=== PATIENT | male | born 1955 | race Caucasian/White ===

== ENCOUNTER 2024-10-09 01:02 | Day surgery (SDC) | payer MEDICARE, SELFPAY ==
[2024-09-29 11:09] VITALS: BMI 37.6
--- OUTSIDE RECORDS SUMMARY | 2024-10-09 01:13 | XMS_ITS | Encounter Summary ---
Author Organization [facility] Address [facility] [place] [address] Care Team Providers Care Newspaper Inserter Name Role Phone Kori Becerril NP Unavailable [phone] Pedro Real MD Primary Care Provider [phone] Encounter Details Date Type Department Care Team (Late Contact Info) Description 06/25/2024 Prep for Procedure [facility] [address] [place] [id number] Aldair Santos MD [address] [facility] [address] [place], [place] [id number] Social History Tobacco Use Types Packs/Day Years Used Date Smoking Tobacco: Never Smokeless Tobacco: Never Alcohol Use Standard Drinks/Week Comments Not Currently 0 (1 standard drink = 0.6 oz pur e alcohol) Sex and Gender Information Value Date Recorded Sex Assigned at Not on file 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 [address] documented as of this encounter Visit Diagnoses Not on filedocumented in this encounter Care Teams Newspaper Inserter Relationship Specialty Start Date End Date Pedro Real MD [address] [place], [place] [id number] PCP - General FAMILY PRACTICE 06/02/24 Kori Becerril NP [address] [place], [place] [id number] Nurse Practitioner NURSE PRACTITIONER ADULT HEALTH 05/26/24 documented as of this encounter
--- OUTSIDE RECORDS SUMMARY | 2024-10-09 01:13 | XMS_ITS | Clinical Summary ---
Author Organization [facility] Address [address] [place] [address] Care Team Providers Care Fifth Grade Teacher Name Role Phone Pedro Real MD Primary Care Provider Nikko Ramirez DO Unavailable [phone] Bogdan Jacobsen MD Unavailable Shemar Whitley MD Unavailable [phone] Checo Sargent MD Unavailable Roselia Clarke NP Unavailable Allergies No known active allergies Medications amLODIPine (NORVASC) 5 mg tabletIndicatio ns:hypertension Take 1 tablet (5 mg total) by mouth every morning Active rosuvastatin (CRESTOR) 20 mg tabletIndicatio ns:hyperlipidem ia Take 1 tablet (20 mg total) by mouth every morning Active multivitamin tabletIndicatio ns:Vitamin Deficiency Prevention Take 1 tablet by mouth nightly Active ascorbic acid (VITAMIN C ORAL)Indication s:supplement Take 1 tablet by mouth every morning Active cholecalciferol , vitamin D3, (VITAMIN D3 ORAL)Indication s:supplement Take 1 tablet by mouth every morning Active acetaminophen (TYLENOL) 500 mg tablet Take 1-2 tablets (500-1,000 mg total) by mouth as needed for pain Active mag/aluminum/so d bicarb/alginc (GAVISCON ORAL) Take by mouth as needed Active prochlorperazin e (Compazine) 10 mg tabletIndicatio ns:Malignant melanoma of back (HCC) Take 1 tablet (10 mg total) by mouth every 6 (six) hours as needed for nausea or vomiting 30 tablet 3 3 Active LYCOPENE ORAL Take 1 tablet by mouth daily Active triamcinolone (KENALOG) 0.1 % cream Apply topically 2 (two) times a day Apply to rash covered area two times daily as needed for rash/itching 80 g 2 4 Active aspirin 81 mg chewable tablet CHEW 1 TABLET BY MOUTH EVERY DAY 5 Active mecobalamin, vitamin B12, (B12 Active) 1,000 mcg tablet,chewable 5 Active metoprolol XL (TOPROL-XL) 25 mg extended release tablet Take 1 tablet (25 mg total) by mouth daily 5 07/01/19 26 Active ticagrelor (BRILINTA) 90 mg tablet Take 1 tablet (90 mg total) by mouth 2 (two) times a day 5 07/01/19 26 Active Active Problems Problem Noted Date Diagnosed Date Back wound, right, initial encounter 01/23/2023 Malignant melanoma of back 12/10/2022 Malignant melanoma of upper back 12/06/2022 Malignant neoplasm of testis 06/19/2016 History of renal calculi 08/16/2015 Arthritis 09/07/2014 Obesity 06/16/2013 Encounters Date Type Department Care Team Description 07/13/2024 2:20 PM CDT Office Visit [facility] [address] [place] [address] [address] [place] [address] Shemar Whitley MD Malignant melanoma of back (HCC) (Primary Dx) 07/13/2024 1:00 PM CDT Lab [facility] Lab [address] [place] [address] 6 [place] [address] Malignant melanoma of back (HCC) 07/13/2024 12:45 PM CDT Clinical Support [facility] - Lab Collection [facility] Floor 6 [place] [address] Malignant melanoma of back (HCC) 07/13/2024 10:24 AM CDT - 07/13/2024 11:59 PM CDT Hospital Encounter [facility] - PET [address] [facility] Floor 8 [place] [address] Discharge Disposition: Discharge to home or self care 07/13/2024 10:24 AM CDT - 07/13/2024 11:59 PM CDT Hospital Encounter [facility] - PET [address] [facility] Floor 8 [place] [address] Malignant melanoma of back (HCC) Discharge Disposition: Discharge to home or self care 07/13/2024 Orders Only [facility] Scanning, Provider from Last 3 Months Immunizations Immunization Administration Dates Next Due Tdap 04/10/2024 ZOSTER Recombinant 01/21/2021 Surgical History Surgery Date Site/Laterality Comments TESTICLE SURGERY 03/04/2012 - 03/03/2013 and undescended testicle surgery as a child REPLACEMENT TOTAL KNEE BILATERAL 03/04/2021 - 03/03/2022 KIDNEY STONE SURGERY MELANOMA RESECTION 12/18/2022 right upper back Medical History Medical History Date Comments Malignant melanoma of upper back (HCC) Melanoma (HCC) Hypertension Chronic kidney disease kidney [facility]/ Nephritis as a child Family History * Patient is adopted Medical History Relation Name Comments Anesthesia problems Neg Hx Social History Tobacco Use Types Packs/Day Years Used Date Smoking Tobacco: Never Smokeless Tobacco: Never Tobacco Cessation:Counseling Given: Not Answered AUDIT-C Answer Date Recorded Q1: How often do you have a drink containing alc ohol? Monthly or less 02/01/2023 Q2: How many drinks containi ng alcohol do you have on a typical day when you are drinking? 1 or 2 02/01/2023 Q3: How often do you have si x or more drinks on one occasion? Never 02/01/2023 Personal Safety Answer Date Recorded Have you ever been in or are you currently in a harmful physical or emotional relationship or is someone making you feel afraid or unsafe? 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 Gender Identity Not on file Sexual Orientation Not on file Obstetrics History Last Filed Vital Signs Vital Sign Reading Time Taken Comments Blood Pressure 142/78 07/13/2024 1:58 PM CDT Pulse 66 07/13/2024 1:58 PM CDT Temperature 36.4 C (97.5 F) 07/13/2024 1:58 PM CDT Respiratory Rate 18 07/13/2024 1:58 PM CDT Oxygen Saturation 99% 07/13/2024 1:58 PM CDT Inhaled Oxygen Concentration - - Weight 120.2 kg (265 lb) 07/13/2024 1:58 PM CDT Height 179 cm (5' 10.47) 07/13/2024 1:58 PM CDT Body Mass Index 37.52 07/13/2024 1:58 PM CDT Plan of Treatment Health Maintenance Due Date Last Done Comments Colon Cancer Screening-Colonoscopy 1955 Depression Screening 1955 Hepatitis C Screening 1955 Prostate Cancer Screening-PSA 1955 Hepatitis B Screening 02/28/1974 Pneumococcal vaccine 65+ (1 of 1 - PCV) 02/28/2006 Well Visit 65+ 02/28/2021 Zoster Vaccine (2 of 2) 03/18/2021 01/21/2021 Covid-19 Vaccine (4 - 2023-2 5 season) 2023 02/16/2021, 06/02/2020, 05/04/2020 Fall Risk Assessment 02/02/2024 02/01/2023 Influenza Vaccine (#1) 2024 DTaP/Tdap/Td Vaccine (2 - Td or Tdap) 04/10/2034 04/10/2024 Abdominal Aortic Aneurysm (A AA) Screen Completed 05/25/2024, 02/14/2016, 01/03/2015, Additional history exists Medical Devices Implanted Type Area Distribution Analyst Device Identifier Shelf Expiration Date Model / Serial / Lot Francisco Knees Knee Procedures Procedure Name Priority Date/Time Associated Diagnosis Comments EGFR Routine 07/13/2024 12:54 PM CDT Malignant melanoma of back (HCC) DIFFERENTIAL AUTO Routine 07/13/2024 12: 54 PM CDT Malignant melanoma of back (HCC) CBC WITH AUTO DIFFERENTIAL Routine 07/13/2024 12:54 PM CDT Malignant melanoma of back (HCC) COMPREHENSIVE METABOLIC PANEL Routine 07/13/2024 12:54 PM CDT Malignant melanoma of back (HCC) LACTATE DEHYDROGENASE Routine 07/13/2024 12:54 PM CDT Malignant melanoma of back (HCC) THYROID FUNCTION CASCADE Routine 07/13/2024 12:54 PM CDT Malignant melanoma of back (HCC) SIGNATERA ONLY Routine 07/13/2024 12:44 PM CDT Malignant melanoma of back (HCC) PET/CT FDG SKULL TO THIGH Schedule Routine, Read Routine (OP Routine) 07/13/2024 12:36 PM CDT Malignant melanoma of back (HCC) SCAN - PATHOLOGY 07/13/2024 CT ABDOMEN PELVIS W CONTRAST Routine 02/14/2016 12:37 PM METAL WELDER from Last 3 Months or Most Recently Relevant to Health Maintenance Results * (ABNORMAL) eGFR (07/13/2024 12:54 PM CDT) eGFR 56(L) >=60 mL/min/1. 73 m2 Comment: Interpretive Data Reference Interval Normal >/= 90 mL/min/1.73m2 Mildly decreased* 60 - 89 mL/min/1.73m2 Mildly to moderately decreased 45 - 59 mL/min/1.73m2 Moderately to severely decreased 30 - 44 mL/min/1.73m2 Severely decreased 15 - 29 mL/min/1.73m2 Kidney Failure < 15 mL/min/1.73m2 *Relative to young adult level Estimated glomerular filtration rate is determined by the 2020 CKD-EPI equation recommended by the National Kidney Foundation (A Unifying Approach to GFR Estimation: Recommendations of the NKF-ASK Task Force on Reassessing the Inclusion of Race in Diagnosing Kidney Disease, JASN 202). The CKD-EPI equation should not be used for patients with unstable renal function and has not been validated in children and those over 70. Current interpretive data was last reviewed 2021. Blood 07/13/2024 12:5 4 PM CDT 07/13/2024 1:34 PM CDT us Shemar Whitley MD LAB BLOOD ORDERABLES Final Res ult [facility] Department [place] [address] * Differential, auto (07/13/2024 12:54 PM CDT) Neutrophil abs 5.78 1.50 - 6.50 K/cumm Comment:Testing performed by : [facility], [address] [place] [phone] Lymphocyte abs 1.46 0.80 - 3.30 K/cumm ELI HIDALGO Comment:Testing performed by : [facility], [address] [place], [place] [phone] Monocyte abs 0.69 0.20 - 0.80 K/cumm ELI HIDALGO Comment:Testing performed by : [facility], [address] [place], [place] [phone] Eosinophil abs 0.15 0.00 - 0.50 K/cumm ELI HIDALGO Comment:Testing performed by : [facility], [address] [place] [phone] Basophil abs 0.02 0.00 - 0.10 K/cumm CERSARAH HIDALGO Comment:Testing performed by : [facility], [address] [place] [phone] Neutrophil pct 71.3 % CERNER BJ Comment: Interpretive Data Percent cell count reference ranges are not reported, since discordance with absolute values may lead to misinterpretation of CBC data. Current Interpretive Data was last revised on 2017. Testing performed by: [facility], [address] [place] [phone] Lymphocyte pct 18.1 % CERNER BJ Comment: Interpretive Data Percent cell count reference ranges are not reported, since discordance with absolute values may lead to misinterpretation of CBC data. Current Interpretive Data was last revised on 2017. Testing performed by: [facility], [address] [place] [phone] Monocyte pct 8.5 % CERNER BJ Comment: Interpretive Data Percent cell count reference ranges are not reported, since discordance with absolute values may lead to misinterpretation of CBC data. Current Interpretive Data was last revised on 2017. Testing performed by: [facility], [address] [place] [phone] Eosinophil pct 1.8 % ELI HIDALGO Comment: Interpretive Data Percent cell count reference ranges are not reported, since discordance with absolute values may lead to misinterpretation of CBC data. Current Interpretive Data was last revised on 2017. Testing performed by: [facility], [address] [place] [phone] Basophil pct 0.3 % ELI HIDALGO Comment: Interpretive Data Percent cell count reference ranges are not reported, since discordance with absolute values may lead to misinterpretation of CBC data. Current Interpretive Data was last revised on 2017. Testing performed by: [facility], [address] [place] [phone] Blood 07/13/2024 12:5 4 PM CDT 07/13/2024 1:29 PM CDT us Shemar Whitley MD LAB BLOOD ORDERABLES Final Res ult Performing Organization Address City/[facility]/ZIP Co de Phone Number [facility] Department [place] [address] * Thyroid Function [place] (07/13/2024 12:54 PM CDT) TSH 1.34 0.30 - 4.20 mcIUnit/mL Blood 07/13/2024 12:5 4 PM CDT 07/13/2024 1:34 PM CDT us Shemar Whitley MD LAB BLOOD ORDERABLES Final Res ult Performing Organization Address City/[facility]/ZIP Co de Phone Number [facility] Department [place] [address] * CBC with auto differential (07/13/2024 12:54 PM CDT) WBC 8.11 3.80 - 9.90 K/cumm Comment:Testing performed by : [facility], [address] [place], [place] [phone] Hgb 16.1 13.0 - 17.5 g/dL CERNER BJ Comment:Testing performed by : [facility], [address] [place], [place] [phone] Hct 46.9 38.9 - 50.3 % CERNER BJ Comment:Testing performed by : [facility], [address] [place], [place] [phone] Plt 190 150 - 400 K/cumm CERSARAH BJ Comment:Testing performed by : [facility], [address] [place], [place] [phone] MPV 9.4 6.8 - 10.4 fL CERNER BJ Comment:Testing performed by : [facility], [address] [place], [place] [phone] RBC 5.46 4.30 - 5.80 M/cumm CERNER BJ Comment:Testing performed by : [facility], [address] [place], [place] [phone] MCV 86.0 81.3 - 96.4 fL CERNER BJ Comment:Testing performed by : [facility], [address] [place], [place] [phone] MCH 29.5 27.1 - 33.3 pg CERNER BJ Comment:Testing performed by : [facility], [address] [place] [address] MCHC 34.3 32.3 - 35.7 g/dL CERNER BJ Comment:Testing performed by : [facility], [address] [place] [address] RDW CV 13.8 11.1 - 14.9 % CERNER BJ Comment:Testing performed by : [facility], [address] [place] [address] NRBC abs 0.00 0.00 - 0.01 K/cumm CERNER BJ Comment:Testing performed by : [facility], [facility] [place] [address] Blood 07/13/2024 12:5 4 PM CDT 07/13/2024 1:29 PM CDT Shemar Whitley MD LAB BLOOD ORDERABLES Final Res ult Performing Organization Address City/[facility]/ZIP Co de Phone Number [facility] Department [place] [address] * Lactate dehydrogenase (LD) (07/13/2024 12:54 PM CDT) Lactate dehydrogenase (LDH) 142 100 - 250 Units/L Blood 07/13/2024 12:5 4 PM CDT 07/13/2024 1:34 PM CDT Shemar Whitley MD LAB BLOOD ORDERABLES Final Res ult Performing Organization Address [facility] Co de Phone Number [facility] Department [place] [address] * (ABNORMAL) Comprehensive metabolic panel (07/13/2024 12:54 PM CDT) Pathologist [facility] Sodium 138 135 - 145 mmol/L Potassium, pl 4.1 3.3 - 4.9 mmol/L [facility] Chloride 106 97 - 110 mmol/L [facility] CO2 22 22 - 32 mmol/L [facility] Anion gap 10 2 - 15 mmol/L [facility] BUN 17 6 - 25 mg/dL [facility] Creatinine 1.37(H) 0.80 - 1.30 mg/dL [facility] Glucose 127 70 - 199 mg/dL [facility] Comment: Interpretive Data Fasting glucose >/= 126 mg/dl is diagnostic for diabetes. Fasting is defined as no caloric intake for at least 8 hours. Fasting glucose between 100 mg/dl to 125 mg/dl is diagnostic of prediabetes. In a patient with classic symptoms of hyperglycemia or hyperglycemic crisis, a random glucose >/= 200 mg/dl is diagnostic for diabetes. In the absence of unequivocal hyperglycemia, results should be confirmed by repeat testing. The classification and Diagnosis of Diabetes Diabetes Care 2021; 46: S19-S40. Current interpretive data was last revised 2022. Calcium 9.2 8.5 - 10.3 mg/dL CERNER BJ Bilirubin, total 0.7 0.1 - 1.2 mg/dL CERNER BJ Protein, pl 7.5 6.5 - 8.5 g/dL CERNER BJ Albumin 4.2 3.5 - 5.0 g/dL CERNER BJ Alk phos 73 40 - 130 Units/L [facility] ALT 16 7 - 55 Units/L CERNER BJ AST 20 10 - 50 Units/L CERNER BJ Blood 07/13/2024 12:5 4 PM CDT 07/13/2024 1:34 PM CDT us Shemar Whitley MD LAB BLOOD ORDERABLES Final Res ult [facility] Department [place] [address] * SIGNATERA ONLY (07/13/2024 12:44 PM CDT) SIGNATERA TEST RESULT NEGATIVE 10:23 AM CDT [facility] SIGNATERA MTM READOUT 0 MTM/ml 10:23 AM CDT [facility] Comment: Limitations Signatera is a personalized, tumor-informed test for the longitudinal detection of circulating tumor DNA (ctDNA). Interval testing is recommended for all patients. Studies have demonstrated that when ctDNA is detected (Signatera Positive) following surgery or definitive treatment, the risk for disease relapse is high without further treatment. Conversely, when ctDNA is not detected, the patient may be considered at lower risk for relapse. For those with multiple timepoints, upward trending ctDNA levels are suggestive of increasing tumor burden (1,2). For a single time point in isolation, the absolute MTM/mL value has no known clinical significance and should not be compared across patients. Test results should be interpreted in context of other clinicopathological features. ctDNA detection sensitivity may be limited due to blood collection within two weeks of surgery and while the patient is on therapy. Signatera is a quantitative test and reports in units of mean tumor molecules per ml (MTM/mL), which is comprised of three measured components (plasma volume, cell free DNA (cfDNA) concentration, and Variant Allele Frequency (VAF)). The MTM/mL number will be qualified if any measured component falls outside the analytical measurement range for that component. The analytical sensitivity is 95% at the limit of detection (0.3 MTM/mL). Results obtained are specific to the assessed time point. A negative test result does not definitively indicate the absence of cancer. This test is not designed to detect or report germline variation, nor does it infer hereditary cancer risk for the patient. Each Signatera assay is designed to a single tumor for a given patient. At this time, multiple personalized Signatera assays cannot be developed for the same patient. This test is designed to detect ctDNA from the assayed tumor only; new primary tumors will not be detected. There is a low risk that a new primary may share a variant that could interfere with the Signatera test. Testing cannot be performed in patients who are , have a history of bone marrow transplant, or history of blood transfusion within three months. This test is expected to have limited sensitivity in cancer types such as GIST, renal cell carcinomas, primary brain tumors, and lymphoma due to limited ctDNA shed. 1 Cirilo JERONIMO, Karlos CHENC, Aria TELLEZ, et al. Personalized circulating tumor DNA analysis as a predictive biomarker in solid tumor patients treated with pembrolizumab. Nature Cancer. 2020;1(9):873-881. 2 Ainsley HENRIQUEZ, Randall Abad, et al., Circulating Tumor DNA in Stage III Colorectal Cancer, beyond Minimal Residual Disease Detection, toward Assessment of Adjuvant Therapy Efficacy and Clinical Behavior of Recurrences. Clin Cancer Res. 202; 28(3):507-517. Methodology FFPE samples are reviewed by a pathologist to assess tumor content and percent tumor nuclei. Tumor DNA is extracted using [employer] Mag-Bind FFPE DNA/RNA kit. Whole genomic DNA is isolated from peripheral blood using QIAamp DNA Blood MiniKit to provide DNA for germline sequencing. Circulating tumor DNA (ctDNA) is extracted from plasma derived from whole blood samples collected in cell-free DNA blood tubes (bitFlyer) using the QIAsymphony automated or manual extraction method (Qiagen). Whole-exome sequencing is performed on tumor and peripheral blood DNA using the One[employer] whole-exome sequencing assay. Using a proprietary algorithm, putative, clonal variants present in the tumor but absent in the germline DNA are identified to design the customized multiplex PCR assay. The customized PCR assays are run to detect presence or absence of these variants within circulating plasma. A patient's plasma sample is considered ctDNA positive when at least two individual-specific tumor variants are detected. When fewer than two individual-specific tumor variants are observed, a negative result is issued. Pathology services and whole exome sequencing is performed at [facility]. (CLIA ID# [id number]), [facility] [address] [place] [address]. Disclaimer The extraction, library preparation, and sequencing for this test were performed by [facility] [address] [place] [address] (CLIA ID [id number]). The data analysis and reporting for this test were performed by [facility]., [address], [place] [address] (CLIA ID [id number]). This test was developed and its performance characteristics determined by [facility]. The test has not been cleared or approved by the U.S. Food and Drug Administration (FDA). CAP accredited, ISO 57753 certified, and CLIA certified. Pathology services and whole exome sequencing for this test were performed by [facility] [address], [place] [address] (CLIA ID [id number]). 2020 [employer]. All Rights Reserved. Blood specimen (specimen) Venous blood specimen / Unknown 07/13/2024 12:44 PM CDT 07/20/2024 10:23 AM CDT Shemar Whitley MD LAB GENETIC TESTING Final Resu lt [facility] [address] [place] [address], [facility] * PET/CT FDG Skull to Thigh (07/13/2024 12:36 PM CDT) Anatomical Region Laterality Modality N/A Positron Emissio n Tomography (PET) 07/13/2024 3:33 PM CDT Impressions 07/13/2024 5:36 PM CDT 1. No evidence of residual or recurrent disease. Dictated by: Kira Castellanos MD The radiology attending physician has personally reviewed this study, and had reviewed and/or edited this written report and agrees with it. Electronically signed by: DO Florence Grover 07/13/2024 5:36 PM CDT EXAMINATION: TUMOR FDG-PET/CT IMAGING DATE OF STUDY: 07/13/2024 SCANNER: [employer] (SQ1). This is a high-resolution scanner, which can result in higher SUVs (and even detection of previously unrecognized small lesions) compared to older scanners. RADIOPHARMACEUTICAL: 9.24 mCi F-18 Fluorodeoxyglucose (FDG) i.v. 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 The study is requested for treatment monitoring during therapy. Subsequent treatment strategy. TECHNIQUE: The patient's fasting blood glucose level, measured by glucometer before injection of FDG, was 136 mg/dL. After intravenous administration of FDG, noncontrast CT images were obtained for attenuation correction and for fusion with emission PET images to allow for anatomical localization of PET findings. Emission PET images were then obtained. The study was interpreted on the [employer] workstation. The mean liver SUV (reported for design quality engineer purposes) is 2.7. The total scanned area was skull vertex to proximal thighs. Images of the body were obtained starting 71 minutes after injection of tracer. All reported SUVs are maximum SUVs, unless otherwise specified. COMPARISON: Multiple prior PET CTs including most recent dated 03/16/2024 DESCRIPTORS OF LESION FDG AVIDITY: Minimal: <= blood pool Mild: > blood pool and <= liver Moderate: > liver and <= 2x SUVmax liver Moderate to marked: >2x SUVmax liver and <= 3x SUVmax liver Marked: > 3x SUVmax liver FINDINGS: There is further resolution of inflammatory activity in postsurgical changes in the right upper back. There is moderate FDG uptake surrounding bilateral shoulder joints, and from osteoarthritis. There is moderate FDG uptake involving the esophagus, likely inflammatory. There is interval development of subpleural nodule measuring approximately 4 mm in the right upper lobe (image 137). Additional CT findings: Dental restorations. Postsurgical changes in the right supraclavicular region. . Left thyroid nodule. Aortocoronary calcifications. Atrophic left kidney. Diverticulosis. Hepatic steatosis. Postsurgical changes of left radical orchiectomy.. Degenerative changes in the spine. Bilateral knee replacements. Procedure Note Hiram Boone, DO - 07/13/2024 EXAMINATION: TUMOR FDG-PET/CT IMAGING DATE OF STUDY: 07/13/2024 SCANNER: [facility] [employer] (SQ1). This is a high-resolution scanner, which can result in higher SUVs (and even detection of previously unrecognized small lesions) compared to older scanners. RADIOPHARMACEUTICAL: 9.24 mCi F-18 Fluorodeoxyglucose (FDG) i.v. 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 The study is requested for treatment monitoring during therapy. Subsequent treatment strategy. TECHNIQUE: The patient's fasting blood glucose level, measured by glucometer before injection of FDG, was 136 mg/dL. After intravenous administration of FDG, noncontrast CT images were obtained for attenuation correction and for fusion with emission PET images to allow for anatomical localization of PET findings. Emission PET images were then obtained. The study was interpreted on the [employer] workstation. The mean liver SUV (reported for design quality engineer purposes) is 2.7. The total scanned area was skull vertex to proximal thighs. Images of the body were obtained starting 71 minutes after injection of tracer. All reported SUVs are maximum SUVs, unless otherwise specified. COMPARISON: Multiple prior PET CTs including most recent dated 03/16/2024 DESCRIPTORS OF LESION FDG AVIDITY: Minimal: <= blood pool Mild: > blood pool and <= liver Moderate: > liver and <= 2x SUVmax liver Moderate to marked: >2x SUVmax liver and <= 3x SUVmax liver Marked: > 3x SUVmax liver FINDINGS: There is further resolution of inflammatory activity in postsurgical changes in the right upper back. There is moderate FDG uptake surrounding bilateral shoulder joints, and from osteoarthritis. There is moderate FDG uptake involving the esophagus, likely inflammatory. There is interval development of subpleural nodule measuring approximately 4 mm in the right upper lobe (image 137). Additional CT findings: Dental restorations. Postsurgical changes in the right supraclavicular region. . Left thyroid nodule. Aortocoronary calcifications. Atrophic left kidney. Diverticulosis. Hepatic steatosis. Postsurgical changes of left radical orchiectomy.. Degenerative changes in the spine. Bilateral knee replacements. IMPRESSION: 1. No evidence of residual or recurrent disease. Dictated by: Kira Castellanos MD The radiology attending physician has personally reviewed this study, and had reviewed and/or edited this written report and agrees with it. Electronically signed by: Hiram Boone DO Shemar Whitley MD IMG PET PROCEDURES Final Resul t * SCAN - PATHOLOGY (07/13/2024) us Provider Scanning Final Result * CT Abdomen Pelvis W Contrast (02/14/2016 12:37 PM METAL WELDER) Anatomical Region Laterality Modality Body N/A Computed Tomogra phy 02/14/2016 12:3 7 PM METAL WELDER Narrative 02/14/2016 12:50 PM METAL WELDER TOMMIE WATSON M.D. FINAL REPORT ACC# Date Time Exam [id number] Feb 14, 2016 12:37:[id number] Chest with contrast [id number] Feb 14, 2016 12:37:[id number] Abd & Pelvis with cont EXAMINATION: CT chest, abdomen, and pelvis with contrast HISTORY: Testicular cancer TECHNIQUE: CT of the chest, abdomen, and pelvis was performed after the uneventful intravenous administration of 95 mL Optiray-350 per routine protocol. FINDINGS: Comparison is made to a prior study dated 01/03/2015. 2 mm right lower lobe pulmonary nodule at table position -109 stable. No new pulmonary nodule or mass is identified. There is no pleural effusion, pneumothorax, or consolidation. There is no axillary, supraclavicular, mediastinal, or hilar lymphadenopathy. Heart size is normal with trace pericardial fluid. The thoracic aorta is nonaneurysmal. No liver lesion or biliary ductal dilatation is identified. The gallbladder is nondistended but contains some heterogeneous layering material probably representing small noncalcified stones. No focal lesion is identified in the adrenal glands or pancreas. The spleen is normal in size. Again seen is atrophy an urothelial thickening within the left kidney. A 2 mm nonobstructing stone is seen in the left kidney lower pole. Heterogeneous attenuation within the proximal left ureter may represent tiny nonobstructing stones as described previously, but appear less prominent. The right kidney demonstrates no hydronephrosis. There is a 2 mm nonobstructing right kidney upper pole calculus. The abdominal aorta is normal in caliber. No retroperitoneal, mesenteric, pelvic, or inguinal lymphadenopathy is identified. Surgical changes from left orchiectomy are noted. The bladder is decompressed. Prostate gland is normal in size. There is no free intraperitoneal fluid or free gas. No intestinal obstruction or bowel thickening is identified. There are scattered colonic diverticula without associated inflammation. The appendix is normal. Bone windows demonstrate no suspicious lytic or blastic osseous lesion. There is no vertebral compression deformity. IMPRESSION: 1. No metastatic disease identified in the chest, abdomen, or pelvis. Requested By: Dictated By: TOMMIE WATSON M.D. on Feb 14 2016 12:50P This document has been electronically signed by: TOMMIE WATSON M.D. on Feb 14 2016 12:50P [id number] Procedure Note Provider, MD Jason - 07/09/2016 TOMMIE WATSON M.D. FINAL REPORT ACC# Date Time Exam [id number] Feb 14, 2016 12:37:[id number] Chest with contrast [id number] Feb 14, 2016 12:37:[id number] Abd & Pelvis with cont EXAMINATION: CT chest, abdomen, and pelvis with contrast HISTORY: Testicular cancer TECHNIQUE: CT of the chest, abdomen, and pelvis was performed after the uneventful intravenous administration of 95 mL Optiray-350 per routine protocol. FINDINGS: Comparison is made to a prior study dated 01/03/2015. 2 mm right lower lobe pulmonary nodule at table position -109 stable. No new pulmonary nodule or mass is identified. There is no pleural effusion, pneumothorax, or consolidation. There is no axillary, supraclavicular, mediastinal, or hilar lymphadenopathy. Heart size is normal with trace pericardial fluid. The thoracic aorta is nonaneurysmal. No liver lesion or biliary ductal dilatation is identified. The gallbladder is nondistended but contains some heterogeneous layering material probably representing small noncalcified stones. No focal lesion is identified in the adrenal glands or pancreas. The spleen is normal in size. Again seen is atrophy an urothelial thickening within the left kidney. A 2 mm nonobstructing stone is seen in the left kidney lower pole. Heterogeneous attenuation within the proximal left ureter may represent tiny nonobstructing stones as described previously, but appear less prominent. The right kidney demonstrates no hydronephrosis. There is a 2 mm nonobstructing right kidney upper pole calculus. The abdominal aorta is normal in caliber. No retroperitoneal, mesenteric, pelvic, or inguinal lymphadenopathy is identified. Surgical changes from left orchiectomy are noted. The bladder is decompressed. Prostate gland is normal in size. There is no free intraperitoneal fluid or free gas. No intestinal obstruction or bowel thickening is identified. There are scattered colonic diverticula without associated inflammation. The appendix is normal. Bone windows demonstrate no suspicious lytic or blastic osseous lesion. There is no vertebral compression deformity. IMPRESSION: 1. No metastatic disease identified in the chest, abdomen, or pelvis. Requested By: Dictated By: TOMMIE WATSON M.D. on Feb 14 2016 12:50P This document has been electronically signed by: TOMMIE WATSON M.D. on Feb 14 2016 12:50P [id number] Historical Provider MD JASON CT PROCEDURES Final R esult from Last 3 Months or Most Recently Relevant to Health Maintenance Insurance MEDICARE COMMERCIAL GENERIC MEDICARE COMMERCIAL GENERIC Care Teams Fifth Grade Teacher Relationship Specialty Start Date End Date Pedro Real MD PCP - General Family Medicine 12/04/22 Nikko Ramirez DO [address] [place] [address] Referring Physician Surgery 12/04/22 Bogdan Jacobsen MD [address] [place] [address] Surgeon Surgical Oncology 12/05/22 Shemar Whitley MD [address] [facility] [address] [place] [address] Medical Oncologist/Gang Tailer Medical Oncology 12/05/22 Arie, Checo Marks MD [address] [place] [address] Consulting Physician Plastic Surgery 12/07/22 Roselia Clarke GREY ROLL MAN [address] [place], [place] [address] Nurse Practitioner Family Medicine 02/01/23
--- OUTSIDE RECORDS SUMMARY | 2024-10-09 01:13 | XMS_ITS ---
Author Organization [facility] Address [address] [place] [address] Care Team Providers Care Flour Mixer Name Role Phone Pedro Real MD Primary Care Provider Nikko Ramirez DO Unavailable Bogdan Jacobsen MD Unavailable Shemar Whitley MD Unavailable Checo Sargent MD Unavailable Roselia Clarke NP Unavailable [phone] Active Problems Problem Noted Date Diagnosed Date Back wound, right, initial encounter 01/23/2023 Malignant melanoma of back 12/10/2022 Malignant melanoma of upper back 12/06/2022 Malignant neoplasm of testis 06/19/2016 History of renal calculi 08/16/2015 Arthritis 09/07/2014 Obesity 06/16/2013 Current Treatment and Therapy Plans Hydration Therapy Plan* Plan Start Date:02/15/2023 Plan Provider:Shemar Whitley MD Linked Problems Malignant melanoma of back ( HCC) Treatment Medications No medications scheduled. Past Treatment and Therapy Plans Oncology Chemotherapy Treatment Plan Name Start Date Discontinue Date Treatment Medications Discontinue Reason Plan Provider Cycles Pembrolizumab 21 Day Cycles 023 03/16/2024 pembrolizumab (KEYTRUDA)pembr olizumab (KEYTRUDA) IVPB in 100 mL Therapy Complete Shemar Whitley MD 17 of 17 cycles completed
--- OUTSIDE RECORDS SUMMARY | 2024-10-09 01:14 | XMS_ITS | Encounter Summary ---
Author Organization [facility] Address [address] [place] [address] Phone Care Team Providers Care Speech Therapy Director Name Role Phone Pedro Real MD Primary Care Provider Nikko Ramirez DO Unavailable [phone] Bogdan Jacobsen MD Unavailable [phone] Shemar Whitley MD Unavailable [phone] Checo Sargent MD Unavailable [phone] Roselia Clarke NP Unavailable [phone] Encounter Details Date Type Department Care Team (Latest Contact Info) Description 03/16/2024 Orders Only [facility] Scanning, Provider Social History Tobacco Use Types Packs/Day Years Used Date Smoking Tobacco: Never Smokeless Tobacco: Never AUDIT-C Answer Date Recorded Q1: How often [...] on file 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 Gender Identity Not on file Sexual Orientation Not on file documented as of this encounter Plan of Treatment Not on file documented as of this encounter Procedures Procedure Name Priority Date/Time Associated Diagnosis Comments SCAN - PATHOLOGY 03/16/2024 documented in this encounter Results * SCAN - PATHOLOGY (03/16/2024) Provider Scanning Final Result documented in this encounter Visit Diagnoses Not on filedocumented in this encounter Care Teams Speech Therapy Director Relationship Specialty Start Date End Date Pedro Real MD PCP - General Family Medicine 12/04/22 Nikko Ramirez DO [address] [place], [place] [address] Referring Physician Surgery 12/04/22 Bogdan Jacobsen MD [address] [place] [address] Surgeon Surgical Oncology 12/05/22 Shemar Whitley MD [address] [facility] [address] [place] [address] Medical Oncologist/Escalation Engineer Medical Oncology 12/05/22 Arie, Checo Marks MD [address] [facility] [address] [place] [address] Consulting Physician Plastic Surgery 12/07/22 Roselia Clarke NP [address] [place], [place] [address] Nurse Practitioner Family Medicine 02/01/23 documented as of this encounter
--- OUTSIDE RECORDS SUMMARY | 2024-10-09 01:14 | XMS_ITS | Clinical Summary ---
Author Organization [facility] Address [address] [place] [address] Phone Care Team Providers Care Crane Service Technician Name Role Phone Provider, Outside Primary Care Provider Unavaila ble Allergies No known active allergies Medications Rosuvastatin (CRESTOR) 20 mg tablet Take 20 mg by mouth every day Active amLODIPine (NORVASC) 5 mg tablet Take 5 mg by mouth every day Active cholecalciferol (VITAMIN D3) 25 mcg (1,000 unit) capsule Take 1,000 Units by mouth every day Active multivit,calc,m fh-OU-[id number]-lycop 240 mcg-30 mcg- 300 mcg Tab Take 1 tablet by mouth every day Active ascorbic acid, vitamin C, (VITAMIN C) 1,000 mg Tab Take 1,000 mg by mouth daily at bedtime Active Active Problems Problem Noted Date Diagnosed Date Hypertensive intracerebral hemorrhage 08/03/2023 Social History Tobacco Use Types Packs/Day Years Used Date Smoking Tobacco: Never Assessed Sex and Gender Information Value Date Recorded Sex Assigned at Not on file Legal Sex Male 1:20 AM CDT Gender Identity Not on file Sexual Orientation Not on file Last Filed Vital Signs Vital Sign Reading Time Taken Comments Blood Pressure 138/74 08/04/2023 11:35 AM CDT Pulse 74 08/04/2023 11:35 AM CDT Temperature 36.9 C (98.5 F) 08/04/2023 11:35 AM CDT Respiratory Rate 18 08/04/2023 11:3 5 AM CDT Oxygen Saturation 97% 08/04/2023 11: 35 AM CDT Inhaled Oxygen Concentration - - Weight 117.4 kg (258 lb 13.1 oz) 08/04/2023 3:09 AM CDT Height 180.3 cm (5' 11) 08/03/2023 5:36 AM CDT Body Mass Index 36.1 08/03/2023 5:36 AM CDT Plan of Treatment Health Maintenance Due Date Last Done Comments Diagnostic Colonoscopy [address] Colonography 02/28/2001 Colorectal Cancer Screening 02/28/2001 FIT-DNA (Cologuard) 02/28/2001 Fecal Immunochemical Testing (FIT) 02/28/2001 Fecal Occult Blood (FOBT) 02/28/2001 Flexible Sigmoidoscopy 02/28/2001 Screening Colonoscopy 02/28/2001 HCPOA Document on File 02/28/2006 Pneumococcal Vaccines (50+) (1 of 1 - PCV) 02/28/2006 Prostate Cancer Screening (PSA) 02/28/2011 Fall Screening 02/28/2021 Zoster (Shingles) Vaccine (2 of 2) 03/18/2021 01/21/2021 COVID-19 Vaccine (1 - season) 2023 Eligible for Initial Annual Medicare Wellness Exam 08/02/2024 Influenza Vaccine (#1) 2024 Screening for Diabetes 08/03/2026 , 08/04/2023, 08/03/2023, Additional history exists RSV Vaccine (60+/) (1 - 1-dose 75+ series) 02/28/2031 DTaP/Tdap/Td Vaccines (2 - Td or Tdap) 04/10/2034 04/10/2024 HIB Vaccines Aged Out No longer eligi ble based on patient's age to complete this topic HPV Vaccines Aged Out No longer eligi ble based on patient's age to complete this topic Hepatitis A Vaccines Aged Out No long er eligible based on patient's age to complete this topic Hepatitis B Vaccines Aged Out No long er eligible based on patient's age to complete this topic IPV Vaccines Aged Out No longer eligi ble based on patient's age to complete this topic Meningococcal B Vaccine Aged Out No l onger eligible based on patient's age to complete this topic Meningococcal Vaccine (ACWY) Aged Out No longer eligible based on patient's age to complete this topic Rotavirus Vaccines Aged Out No longer eligible based on patient's age to complete this topic Procedures Procedure Name Priority Date/Time Associated Diagnosis Comments GLYCO HB A1C Routine 08/04/2023 7:17 AM CDT from Last 3 Months or Most Recently Relevant to Health Maintenance Results * GLYCO HB A1C (08/04/2023 7:17 AM CDT) GLYCO HB A1C 6.1 4.0 - 7.0 % [facility] Comment: Recommended goal of therapy for adults with diabetes mellitus: <7.0% Adults > or =18 years: Increased risk (prediabetes): 5.7-6.4% The [place] [employer] recommends the use of A1C for the diagnosis of diabetes mellitus in non- adults with an A1C result of > or =6.5% and confirmed with repeat testing. ESTIMATED AVERAGE GLUCOSE 128 [facility] Comment: The relationship between A1c and eAG is described by the formula (28.7 x A1c)-46.7 = eAG. Recommended eAG: <150 mg/dL [facility], [address] [place] [id number] 08/04/2023 7:17 AM CDT 08/04/2023 8:02 AM CDT us Ольга Alves MD HEM/CHEM/IMMUN-BLOOD Fin al Result [facility] [address] [place] [phone], from Last 3 Months or Most Recently Relevant to Health Maintenance Insurance [facility] MEDICARE Advance Directives For more information, please contact: [phone] * Attempt CPR / Full Treatment (Latest Code Status on File) Date Activated Date Inactivated Comments 08/03/2023 12:26 PM 08/04/2023 3:29 PM * Attempt CPR / Full Treatment Date Activated Date Inactivated Comments 08/03/2023 6:00 AM 08/03/2023 12:22 PM Care Teams Crane Service Technician Relationship Specialty Start Date End Date Provider, Outside PCP - General 08/04/23
--- OUTSIDE RECORDS SUMMARY | 2024-10-09 01:14 | XMS_ITS | Encounter Summary ---
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 Gender Identity Not on file Sexual Orientation Not on file documented as of this encounter Plan of Treatment Not on file documented as of this encounter Procedures Procedure Name Priority Date/Time Associated Diagnosis Comments SCAN - PATHOLOGY 07/13/2024 documented in this encounter Results * SCAN - PATHOLOGY (07/13/2024) Provider Scanning Final Result documented in this encounter Visit Diagnoses Not on filedocumented in this encounter Care Teams Public Health Social Worker Relationship Specialty Start Date End Date Pedro Real MD PCP - General Family Medicine 12/04/22 Nikko Ramirez DO [address] [place], [place] [address] Referring Physician Surgery 12/04/22 Bogdan Jacobsen MD [address] [place] [address] Surgeon Surgical Oncology 12/05/22 Shemar Whitley MD [address] [facility] [address] [place] [address] Medical Oncologist/Medical Billing Supervisor Medical Oncology 12/05/22 Arie, Checo Marks MD [address] [facility] [address] [place] [address] Consulting Physician Plastic Surgery 12/07/22 Roselia Clarke NP [address] [place], [place] [address] Nurse Practitioner Family Medicine 02/01/23 documented as of this encounter
--- OUTSIDE RECORDS SUMMARY | 2024-10-09 01:14 | XMS_ITS | Encounter Summary ---
Author Organization [facility] Address [facility] [place] [address] Care Team Providers Care Juke Box Mechanic Name Role Phone Kori Becerril NP Unavailable [phone] Pedro Real MD Primary Care Provider [phone] Encounter Details Date Type Department Care Team (Late Contact Info) Description 08/03/[address] [facility] [address] [place] [address] Kori Becerril NP [address] [place] [address] Cardiac Rehab Social History Tobacco Use Types Packs/Day Years Used Date Smoking Tobacco: Never Smokeless Tobacco: Never Alcohol Use Standard Drinks/Week Comments Never 0 (1 standard drink = 0.6 oz pur e alcohol) Sex and Gender Information Value Date Recorded Sex Assigned at Not on file Legal Sex Male 9:34 PM CUSTOMER SERVICE TECHNICIAN Gender Identity Not on file Sexual Orientation Not on file documented as of this encounter Plan of Treatment Upcoming Encounters Date Type Department Care Team (Late Contact Info) Description 01/06/2025 10:30 AM CUSTOMER SERVICE TECHNICIAN Office Visit [facility] [address] [place] [address] Kori Becerril NP [address] [place] [address] documented as of this encounter Visit Diagnoses Not on filedocumented in this encounter Care Teams Juke Box Mechanic Relationship Specialty Start Date End Date Pedro Real MD [address] [address] PCP - General FAMILY PRACTICE 06/02/24 Kori Becerril NP [address] [place], [place] [address] Nurse Practitioner NURSE PRACTITIONER ADULT HEALTH 05/26/24 documented as of this encounter
--- OUTSIDE RECORDS SUMMARY | 2024-10-09 01:14 | XMS_ITS | Encounter Summary ---
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 Gender Identity Not on file Sexual Orientation Not on file documented as of this encounter Plan of Treatment Not on file documented as of this encounter Procedures Procedure Name Priority Date/Time Associated Diagnosis Comments SCAN - PATHOLOGY 07/16/2023 10:46 AM CDT documented in this encounter Results * SCAN - PATHOLOGY (07/16/2023 10:46 AM CDT) us Provider Scanning Final Result documented in this encounter Visit Diagnoses Not on filedocumented in this encounter Care Teams Valve Maker Relationship Specialty Start Date End Date Pedro Real MD PCP - General Family Medicine 12/04/22 Nikko Ramirez DO [address] [place], [place] [address] Referring Physician Surgery 12/04/22 Bogdan Jacobsen MD [address] [place] [address] Surgeon Surgical Oncology 12/05/22 Shemar Whitley MD [address] [facility] [address] [place] [address] Medical Oncologist/Signal Operator Medical Oncology 12/05/22 Arie, Checo Marks MD [address] [facility] [address] [place] [address] Consulting Physician Plastic Surgery 12/07/22 Roselia Clarke NP [address] [place], [place] [address] Nurse Practitioner Family Medicine 02/01/23 documented as of this encounter
--- OUTSIDE RECORDS SUMMARY | 2024-10-09 01:14 | XMS_ITS | Encounter Summary ---
Author Organization 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 Gender Identity Not on file Sexual Orientation Not on file documented as of this encounter Plan of Treatment Not on file documented as of this encounter Procedures Procedure Name Priority Date/Time Associated Diagnosis Comments SCAN - PATHOLOGY 01/13/2024 documented in this encounter Results * SCAN - PATHOLOGY (01/13/2024) Provider Scanning Final Result documented in this encounter Visit Diagnoses Not on filedocumented in this encounter Care Teams Life Underwriter Relationship Specialty Start Date End Date Pedro Real MD PCP - General Family Medicine 12/04/22 Nikko Ramirez DO [address] [place], [place] [address] Referring Physician Surgery 12/04/22 Bogdan Jacobsen MD [address] [place] [address] Surgeon Surgical Oncology 12/05/22 Shemar Whitley MD [address] [facility] [address] [place] [address] Medical Oncologist/Toe Laster Medical Oncology 12/05/22 Aire, Checo Marks MD [address] [facility] [address] [place] [address] Consulting Physician Plastic Surgery 12/07/22 Roselia Clarke NP [address] [place], [place] [address] Nurse Practitioner Family Medicine 02/01/23 documented as of this encounter
--- OUTSIDE RECORDS SUMMARY | 2024-10-09 01:14 | XMS_ITS | Clinical Summary ---
Author Organization [facility] Address [address] [place] [address] Care Team Providers Care Psychiatric Rn Name Role Phone Kori Becerril NP Unavailable [phone] Pedro Real MD Primary Care Provider [phone] Allergies No known active allergies Medications amLODIPine (NORVASC) 5 MG tablet Take 1 tablet (5 mg total) by mouth daily. Active Ascorbic Acid 1000 MG Tab Take 1,000 mg by mouth daily. Active Multiple Vitamins-Engineering Document Control Clerk als (ONE-A-DAY 50 PLUS OR) Take 1 tablet by mouth daily. 5 Active Cyanocobalamin (B-12) 100 MCG Tab Take 1 tablet by mouth daily. 5 Active aspirin 81 MG chewable tablet Chew 1 tablet (81 mg total) by mouth daily. 90 tablet 3 5 026 Active ticagrelor (BRILINTA) 90 mg tablet Take 1 tablet (90 mg total) by mouth 2 (two) times daily. 180 tablet 3 5 026 Active metoprolol succinate ER (TOPROL-XL) 25 MG 24 hr tablet Take 1 tablet (25 mg total) by mouth daily. 90 tablet 3 5 026 Active vitamin D3, cholecalcifero l, (D 1000) 25 mcg capsule Take 3 capsules (3,000 Units total) by mouth daily. 30 capsule 5 Active rosuvastatin (CRESTOR) 40 MG tablet TAKE ONE TABLET BY MOUTH EVERY DAY 90 tablet 3 5 Active losartan (COZAAR) 25 MG tablet TAKE 1/2 TABLET BY MOUTH EVERY DAY 45 tablet 3 Active rosuvastatin (CRESTOR) 40 MG tablet Take 1 tablet (40 mg total) by mouth daily. 5 025 Discontinued losartan (COZAAR) 25 MG tablet Take 0.5 tablets (12.5 mg total) by mouth daily. 15 tablet 1 5 025 Discontinued Active Problems Problem Noted Date Diagnosed Date Coronary artery disease invo lving cheesh-na coronary artery of cheesh-na heart without angina pectoris 07/06/2024 S/P coronary artery stent placement 07/06/2024 MENJIVAR (dyspnea on exertion) 06/02/2024 Precordial pain 05/30/2024 Other hyperlipidemia 05/30/2024 Class 2 severe obesity due t o excess calories with serious comorbidity and body mass index (BMI) of 37.0 to 37.9 in adult 05/30/2024 Primary hypertension 05/30/2024 Encounters Date Type Department Care Team Description 08/03/2024 9:26 AM CDT - 08/03/2024 11:59 PM CDT Hospital Encounter [facility] [address] [place] [address] Aldair Santos MD Discharge Disposition: Home or Self Care (Routine Discharge) 08/03/2024 MyChart Message [facility] [address] [place] [address] Kori Becerril NP Cardiac Rehab 08/03/2024 Travel 07/30/2024 9:24 AM CDT - 07/30/2024 11:59 PM CDT Hospital Encounter [facility] [address] [place] [address] Aldair Santos MD Discharge Disposition: Home or Self Care (Routine Discharge) 07/29/2024 10:32 AM CDT - 07/29/2024 11:59 PM CDT Hospital Encounter [facility] [address] [place] [address] Aldair Santos MD Discharge Disposition: Home or Self Care (Routine Discharge) 07/28/2024 9:18 AM CDT - 07/28/2024 11:59 PM CDT Hospital Encounter [facility] [address] [place] [address] Aldair Santos MD Discharge Disposition: Home or Self Care (Routine Discharge) 07/24/2024 Telephone [facility] [address] [place] [address] Aldair Santos MD Medication 07/23/2024 9:17 AM CDT - 07/23/2024 11:59 PM CDT Hospital Encounter [facility] [address] [place] [address] Aldair Santos MD Discharge Disposition: Home or Self Care (Routine Discharge) 07/21/2024 9:17 AM CDT - 07/21/2024 11:59 PM CDT Hospital Encounter [facility] [address] [place] [address] Aldair Santos MD Discharge Disposition: Home or Self Care (Routine Discharge) 07/20/2024 9:18 AM CDT - 07/20/2024 11:59 PM CDT Hospital Encounter [facility] [address] [place] [address] Aldair Santos MD Discharge Disposition: Home or Self Care (Routine Discharge) 07/16/2024 2:52 PM CDT - 07/16/2024 11:59 PM CDT Hospital Encounter [facility] [address] [place] [address] Aldair Santos MD Discharge Disposition: Home or Self Care (Routine Discharge) 07/16/2024 Travel from Last 3 Months Social History Tobacco Use Types Packs/Day Years Used Date Smoking Tobacco: Never Smokeless Tobacco: Never Tobacco Cessation:Counseling Given: Not Answered Alcohol Use Standard Drinks/Week Comments Never 0 (1 standard drink = 0.6 oz pur e alcohol) Sex and Gender Information Value Date Recorded Sex Assigned at Not on file Legal Sex Male 9:34 PM DIRECTOR EQUIPMENT Gender Identity Not on file Sexual Orientation Not on file Last Filed Vital Signs Vital Sign Reading Time Taken Comments Blood Pressure 138/80 07/06/2024 3:29 PM CDT Pulse 71 07/06/2024 3:29 PM CDT Temperature 36.3 C (97.3 F) 06/30/2024 6:54 AM CDT Respiratory Rate 15 06/30/2024 6:54 AM CDT Oxygen Saturation 96% 07/06/2024 3:29 PM CDT Inhaled Oxygen Concentration - - Weight 122.5 kg (270 lb) 07/06/2024 3:29 PM CDT Height 177.8 cm (5' 10) 07/06/2024 3:29 PM CDT Body Mass Index 38.74 07/06/2024 3:29 PM CDT Plan of Treatment Upcoming Encounters Date Type Department Care Team (Late st Contact Info) Description 01/06/2025 10:30 AM DIRECTOR EQUIPMENT Office Visit [facility] [address] [place] [address] Kori Becerril NP [address] [place] [address] Health Maintenance Due Date Last Done Comments Colorectal Cancer Screening Colonoscopy (10 Years) 1955 Hepatitis C 02/28/1974 Pneumococcal Vaccine: 50+ Years (1 of 2 - PCV) 02/28/1975 RSV Immunization or 60+ Years (1 - Risk 60-74 years 1-dose series) 2016 Annual Medicare Wellness Visit 02/28/2021 Zoster Vaccines (2 of 2) 03/18/2021 01/21/2021 COVID-19 Vaccine (4 - 2023-2 5 season) 2023 02/16/2021, 06/02/2020, 05/04/2020 ASCVD LDL 06/20/2024 06/21/2023, 06/05/2021 DTaP, Tdap and Td Vaccines ( 2 - Td or Tdap) 04/10/2034 04/10/2024 Meningococcal B Vaccine Aged Out No l onger eligible based on patient's age to complete this topic Meningococcal Vaccine Aged Out No russ cy eligible based on patient's age to complete this topic RSV Immunizations Under 20 Months Aged Out No longer eligible b ased on patient's age to complete this topic Medical Devices Implanted Type Area Behavior Clinician Device Identifier Shelf Expiration Date Model / Serial / Lot Knee Components Knee Components Biotronik Orsiro 3mm X 18mm- 5 Implanted:Qty : 1 on 06/30/2024 by Aldair Santos MD Stent Coronary LAD BIOTRONIK 11/02/2025 [id number] / / [id number] Procedures Procedure Name Priority Date/Time Associated Diagnosis Comments LIPID PANEL Routine 06/21/2023 8:15 AM CDT Special screening for malignant neoplasm of prostate Malignant melanoma from Last 3 Months or Most Recently Relevant to Health Maintenance Results * LIPID PANEL (06/21/2023 8:15 AM CDT) CHOLESTEROL 132 0 - 199 MG/DL 06/21/2023 10:14 AM CDT [facility] TRIGLYCERIDES 107 0 - 149 MG/DL 06/21/2023 10:14 AM CDT [facility] HDL 49 >39 MG/DL 06/21/2023 11:03 AM CDT [facility] LDL (CALCULATED) 62 <100 MG/DL 06/21/19 11:03 AM CDT [facility] VLDL CALCULATION 21 MG/DL 06/21/19 11:03 AM CDT [facility] Comment:REFERENCE RANGE NOT ESTABLISHED CHOL/HDL RATIO 2.7 06/21/2023 11:03 AM CDT [facility] Comment:REFERENCE RANGE NOT ESTABLISHED LDL/HDL 1.3 06/21/2023 11:03 AM CDT [facility] Comment:REFERENCE RANGE NOT ESTABLISHED NON HDL CHOLESTEROL 83 MG/DL 06/21/2023 11:03 AM CDT [facility] Comment:REFERENCE RANGE NOT ESTABLISHED 06/21/2023 8:15 AM CDT us Pedro Schueler MD LABORATORY Final Result [facility] [address] [place] [address], from Last 3 Months or Most Recently Relevant to Health Maintenance Insurance MEDICARE [employer] Care Teams Psychiatric Rn Relationship Specialty Start Date End Date Pedro Real MD [address] [address] PCP - General FAMILY PRACTICE 06/02/24 Kori Becerril NP [address], [place] [address] Nurse Practitioner NURSE PRACTITIONER ADULT HEALTH 05/26/24
[2024-10-09 09:40] VITALS: BP 168/94; PULSE 79; RESP 16; TEMP 36.5; O2SAT 97; BMI 37.0
--- NOTE | 2024-10-09 09:58 | SUR.PREOP ---
patient stated took blood thinner yesterday, was notified and will proceed with procedure.
[2024-10-09] MEDS: LACTATED RINGERS 1,000 ML 150 ML IV CONT (10:05)
--- NOTE | 2024-10-09 10:11 | WPDANESEPPF ---
Anes - Initial Pre Proc Eval Procedure: Operation Date: 10/09/24 11:00 Proposed Procedures p Screening Colonoscopy - Robin Mahan MD Date/Time: 10/09/24 10:11 Surgeon: Robin Mahan MD Pre Op Diagnosis: Screening Patient Data Age: 69 Gender: M Height: 1.8 m Weight: 120.3 kg Last Vital Signs Temp 36.5 C 10/09/24 09:40 Pulse 79 10/09/24 09:40 Resp 16 10/09/24 09:40 BP 168/94 H 10/09/24 09:40 Pulse Ox 97 10/09/24 09:40 O2 Del Method Room Air 10/09/24 09:40 Allergies Allergy/AdvReac Type Severity Reaction Status Date / Time No Known Allergies Allergy Unknown Verified 10/09/24 09:49 Home Medications ?Medication ?Instructions ?Recorded ?Confirmed ?Type amlodipine 5 mg tablet 5 mg PO DAILY #90 tabs 04/27/24 10/09/24 Rx aspirin 81 mg chewable tablet 1 tablet PO DAILY 09/29/24 10/09/24 History losartan 25 mg tablet 25 mg PO DAILY 09/29/24 10/09/24 History metoprolol succinate 25 mg 25 mg PO DAILY 09/29/24 10/09/24 History tablet,extended release 24 hr multivitamin (Daily Multi-Vitamin 1 tablet PO DAILY 09/29/24 10/09/24 History tablet) rosuvastatin 40 mg tablet 40 mg PO DAILY 09/29/24 10/09/24 History ticagrelor 90 mg tablet 90 mg PO Q12H 09/29/24 10/09/24 History Patient hx anesthesia problems: none Family hx anesthesia problems: none Results Review: All pre-operative results and documents have been reviewed as part of the pre-operative evaluation. [facility] Past Medical History Medical History Fatigue Screening for thyroid disorder Urinary frequency Basal ganglia hemorrhage Low back pain Mixed hyperlipidemia Melanoma Elevated hemoglobin Osteoarthritis of right knee Screen for colon cancer Screening for prostate cancer Essential hypertension Social History Social History Smoking status: Never smoker Second hand tobacco smoke exposure: No Alcohol intake: never Substance use: never Substance use type: does not use Do You Feel Safe in your Home?: Yes Lack of Transportation: No Lack of Food: Never True Current Housing: I Have Housing Concerned About Future Housing: No Difficulty Paying Gas/Electric Bills: No Difficulty Paying for Meds: No Currently Unemployed: No Education: Trade/Vocational Certificate Difficulty w/ Childcare or Family Care: No Living arrangements: with family Occupation/Education: retired Additional occupation/education comments: Retired [employer] [place]. Gender identity (if verbalized by the patient): Male Spiritual care concerns: No Anes - Eval Final PreProcedure Day of Procedure 10/09/24 10:11 Patient weight: obese Heart: regular rate and rhythm Lungs: clear to auscultation Airway: Mallampati scale class II Neurological: alert and oriented Last oral intake: >/= 8 hours ASA classification: III Emergent: no Anesthetic plan: proceed Anesthesia type and monitoring: general GIVS and standard monitoring Results Review: All pre-operative results and documents have been reviewed as part of the pre-operative evaluation. Informed Consent: The patient's anesthetic plan and its attendant risks and benefits were discussed with the patient/family/POA. Questions were solicited and answers provided to the satisfaction of the patient/family/POA.
--- NOTE | 2024-10-09 10:31 | PM.IMHP ---
H&P: HPI History of Present Illness Date/Time: 10/09/24 10:31 Chief Complaint: Screening colonoscopy Narrative: This is the patient's first colonoscopy. There are no GI symptoms and there is no family history of colorectal cancer. the patient has a history of testicular cancer and melanoma, and has been receiving Keytruda throughout last year. Review of Systems Review of Systems: All systems reviewed & are unremarkable except as noted in HPI and below PMFSH Past Medical History Medical History Fatigue Screening for thyroid disorder Urinary frequency Basal ganglia hemorrhage Low back pain Mixed hyperlipidemia Melanoma Elevated hemoglobin Osteoarthritis of right knee Screen for colon cancer Screening for prostate cancer Essential hypertension Social History Social History Smoking status: Never smoker Second hand tobacco smoke exposure: No Alcohol intake: never Substance use: never Substance use type: does not use Do You Feel Safe in your Home?: Yes Lack of Transportation: No Lack of Food: Never True Current Housing: I Have Housing Concerned About Future Housing: No Difficulty Paying Gas/Electric Bills: No Difficulty Paying for Meds: No Currently Unemployed: No Education: Trade/Vocational Certificate Difficulty w/ Childcare or Family Care: No Living arrangements: with family Occupation/Education: retired Additional occupation/education comments: Retired [employer] [place]. Gender identity (if verbalized by the patient): Male Spiritual care concerns: No Meds Home Medications and Allergies Home Medications ?Medication ?Instructions ?Recorded ?Confirmed ?Type amlodipine 5 mg tablet 5 mg PO DAILY #90 tabs 04/27/24 10/09/24 Rx aspirin 81 mg chewable tablet 1 tablet PO DAILY 09/29/24 10/09/24 History losartan 25 mg tablet 25 mg PO DAILY 09/29/24 10/09/24 History metoprolol succinate 25 mg 25 mg PO DAILY 09/29/24 10/09/24 History tablet,extended release 24 hr multivitamin (Daily Multi-Vitamin 1 tablet PO DAILY 09/29/24 10/09/24 History tablet) rosuvastatin 40 mg tablet 40 mg PO DAILY 09/29/24 10/09/24 History ticagrelor 90 mg tablet 90 mg PO Q12H 09/29/24 10/09/24 History Allergies Allergy/AdvReac Type Severity Reaction Status Date / Time No Known Allergies Allergy Unknown Verified 10/09/24 09:49 Vital Signs Vital Signs - 24 hr 10/09/24 09:40 Temperature 97.7 F Pulse Rate 79 Respiratory Rate 16 Blood Pressure 168/94 H Pulse Oximetry 97 Oxygen Delivery Room Air Exam Const: General: cooperative and healthy appearing Resp: Effort & Inspection: normal respiratory effort and able to speak in complete sentences Auscultation: clear to auscultation bilaterally Cardio: Rate: regular rate Rhythm: regular rhythm GI: Inspection: normal to inspection GI Palp: No No hepatosplenomegaly present Auscultation: normal bowel sounds Rectal Exam: deferred Skin: General skin exam: normal color Psych: Appearance: grossly normal Mental Status: mental status grossly normal Assessment and Plan Assessment and plan (1) Screen for colon cancer: Code(s): Z12.11 - Encounter for screening for malignant neoplasm of colon Status: Acute Assessment and Plan: The patient is deemed a good candidate for the procedure. Consent signed. Will proceed.
[2024-10-09 10:51] VITALS: BP 131/76; PULSE 67; RESP 22; O2SAT 98
--- NOTE | 2024-10-09 10:52 | S_PTH ---
PATIENT: Omar Coronel LOC: [place] U#:[id number] AGE/SX: 69/M ROOM: RE10/09/[address]: Robin Mahan MD : 1955 BED: DIS: 10/09/2024 SPEC #: [id number] RECD: 10/09/24 13:11 STATUS: JORDAN REQ #: [id number] DEONTE: 10/09/24 10:[address]: Robin Mahan DEPT: [facility] Surgical RECD BY: Livan Cherry ENTERED: 10/09/24 13:14 SP TYPE: Surgical OTHR DR: Pedro Real MD Tissues: A - Colon Polypectomy B - Colon Polypectomy Procedures: Hematoxylin and Eosin Stain Gross and Microscopic Level 4
[2024-10-09 11:01] VITALS: BP 124/83; PULSE 68; RESP 20; O2SAT 98
[2024-10-09 11:11] VITALS: BP 121/85; PULSE 66; RESP 15; O2SAT 97
== END 2024-10-09 11:20 | disposition home or self-care (01) ==
PROVIDERS: PCP Family Medicine; Referring Provider Family Medicine; Visit Provider Internal Medicine Gastroenterology
PROC: 0DJD8ZZ Inspection of Lower Intestinal Tract, Via Natural or Artificial Opening Endoscopic (ICD-10-PCS; CPT 45378; principal; 2024-10-09 11:00)
DX: Z12.11 Encounter for screening for malignant neoplasm of colon (principal); D12.4 Benign neoplasm of descending colon; K63.5 Polyp of colon; K64.8 Other hemorrhoids; K57.30 Diverticulosis of large intestine without perforation or abscess without bleeding; I10 Essential (primary) hypertension; E78.2 Mixed hyperlipidemia; M17.11 Unilateral primary osteoarthritis, right knee; R35.0 Frequency of micturition; R53.83 Other fatigue; E66.9 Obesity, unspecified; Z68.37 Body mass index [BMI] 37.0-37.9, adult; Z79.82 Long term (current) use of aspirin; Z79.02 Long term (current) use of antithrombotics/antiplatelets; Z85.47 Personal history of malignant neoplasm of testis; Z85.820 Personal history of malignant melanoma of skin
CPT/HCPCS: 45385; 88305; J2704; J7120